=== PATIENT | female | born 2000 | race Two or more races ===

== ENCOUNTER 2025-04-14 08:52 | Emergency (ER) | payer SELFPAY ==
[2025-04-14 09:30] LABS: MEAN PLATELET VOLUME 9.5 fL (9.4-12.3); NRBC ABSOLUTE 0.00 K/uL (0.00-0.02); NRBC PERCENT 0.0 /100WBC (0.0-0.2); PLATELET COUNT,PLT 410 K/uL (150-400); RED BLOOD CELL COUNT 4.35 M/uL (4.10-5.30); WHITE BLOOD CELL COUNT,WBC 21.92 K/uL (3.9-11.3)
[2025-04-14] MEDS: Ketorolac 30 MG/ML SDV IVPUSH ONE (09:36)
[2025-04-14 09:54] LABS: A/G RATIO 0.8 (0.9-1.6); ALANINE AMINOTRANSFERASE,ALT 49 IU/L (14-63); ASPARTATE AMNIOTRANSFERASE,AST 16 IU/L (15-37); BILIRUBIN TOTAL 0.3 mg/dL (0.2-1.0); BLOOD UREA NITROGEN,BUN 13 mg/dL (7.0-18.0); CARBON DIOXIDE,CO2 27.3 mmol/L (21.0-32.0); CHLORIDE,CL 99 mmol/L (98-107); CREATININE 0.8 mg/dL (0.6-1.0); GLUCOSE RANDOM 116 mg/dL (74-106); POTASSIUM,K 4.5 mmol/L (3.5-5.1); PROTEIN TOTAL,TP 8.8 g/dL (6.4-8.2); SODIUM,NA 139 mmol/L (136-145)
[2025-04-14 09:57] LABS: LACTIC ACID 1.9 mmol/L (0.4-2.0)
[2025-04-14 09:59] LABS: BASOPHILS ABSOLUTE MAN 0.22 K/uL (0.00-0.20); BASOPHILS PERCENT MAN 1 % (0-1); LYMPHOCYTES ABSOLUTE MAN 5.26 K/uL (1.00-4.80); LYMPHOCYTES PERCENT MAN 24 % (24-44); METAMYELOCYTE ABSOLUTE MAN 0.44; METAMYELOCYTE PERCENT MAN 2 %; MONOCYTES ABSOLUTE MAN 2.41 K/uL (0.00-0.80); MONOCYTES PERCENT MAN 11 % (0-8); MYELOCYTE ABSOLUTE MAN 1.10; MYELOCYTE PERCENT MAN 5 %; SEG NEUTROPHILS ABSOLUTE MAN 12.49 K/uL (1.80-7.70); SEG NEUTROPHILS PERCENT MAN 57 % (41-71)
[2025-04-14 10:00] LABS: ESTIMATED GFR 105 mL/min (>60)
== END 2025-04-14 11:13 | disposition home or self-care (01) ==
LOC: MW.ED 08:52
DX: L03.311 Cellulitis of abdominal wall (principal); Z79.899 Other long term (current) drug therapy
CPT/HCPCS: 36415; 80053; 83605; 85025; 87040; 96374; 99284; A9270; J1885; 99283